=== PATIENT | female | born 1990 | race Caucasian/White ===

== ENCOUNTER 2018-06-05 07:58 | Emergency (ER) | payer MEDICAID ==
[~2018-06-05] VITALS: Ht 172.7 cm; Wt 76.6 kg
[~2018-06-05 07:58] MED LIST: ONDA4TAB6 PO
[2018-06-05 08:05] VITALS: BP 119/71
[2018-06-05] MEDS ORDERED: HYDROcodone/acetaminophen 10/325mg tab PO ONE (08:55)
[2018-06-05] MEDS ORDERED: bupivacaine 0.25%/epinephrine 1:200,000 inj (contains preserv. MDV) IJ ONE (08:55)
[2018-06-05] MEDS ORDERED: BUPIVAcaine/PF 2.5mg/ml (0.25%) 10ml vial IJ ONE (09:35)
[2018-06-05] MEDS ORDERED: IBUP-1985 PO (10:46)
[2018-06-05] MEDS ORDERED: HYDR-3965 PO (10:46)
== END 2018-06-05 10:55 | disposition home or self-care (01) ==
LOC: ER 07:59
DX: K04.7 Periapical abscess without sinus (principal); Z88.0 Allergy status to penicillin
CPT/HCPCS: 41800; 99283; J3490

== ENCOUNTER 2020-06-07 11:35 | Emergency (ER) | payer MEDICAID ==
[~2020-06-07] VITALS: Ht 172.7 cm; Wt 70.5 kg
[~2020-06-07 11:35] MED LIST changes: +IBUP-1985 PO
--- NOTE | 2020-06-07 13:11 | NUR ---
ASSISTED PA WITH VAGINAL EXAMINATION, WETMOUNT COLLECTED AND SEND TO LAB.
--- NOTE | 2020-06-07 13:12 | NUR ---
PATIENT IS WAITING FOR A PELVIC XRAY.
[2020-06-07 13:37] LABS: CLARITY,URINE SLIGHTLY CLOUDY (Clear); COLOR,URINE YELLOW (Yellow); GLUCOSE, URINE NEGATIVE (Neg); KETONES,URINE TRACE mg/dl (Neg); LEUKOCYTE ESTERASE ,URINE NEGATIVE (Neg); NITRITES, URINE NEGATIVE (Neg); OCCULT BLOOD,URINE NEGATIVE (Neg); PROTEIN,URINE NEGATIVE (Neg)
[2020-06-07 13:42] LABS: UA COLLECTION TYPE CLN CATCH MIDSTREAM
[2020-06-07 13:43] LABS: MUCUS STRANDS MANY /LPF (Neg); SQUAMOUS EPITHELIAL CELL,UR MANY /LPF (FEW)
[2020-06-07 13:45] LABS: BACTERIA,URINE FEW /HPF (Neg); RBC,URINE NONE SEEN /HPF (0-2); WBC,URINE 0-4 /HPF (0-4)
[2020-06-07 14:02] VITALS: BP 118/58
== END 2020-06-07 14:05 | disposition home or self-care (01) ==
LOC: ER 11:36
DX: T83.89XA Other specified complication of genitourinary prosthetic devices, implants and grafts, initial encounter (principal); F11.90 Opioid use, unspecified, uncomplicated; Z86.19 Personal history of other infectious and parasitic diseases; Z88.0 Allergy status to penicillin; Z79.899 Other long term (current) drug therapy; Y76.8 Miscellaneous obstetric and gynecological devices associated with adverse incidents, not elsewhere classified; Y92.89 Other specified places as the place of occurrence of the external cause
CPT/HCPCS: 74018; 81001; 87210; 99284

== ENCOUNTER 2020-11-09 08:03 | Emergency (ER) | payer MEDICAID ==
[~2020-11-09] VITALS: Ht 172.7 cm; Wt 64.8 kg
[2020-11-09 08:47] LABS: BASOPHILS % (AUTO) 0.4 % (0-1); EOSINOPHILS # (AUTO) 0.1 X10'3 (0-0.9); HEMATOCRIT 42.5 % (35.0-45.0); HEMOGLOBIN 14.5 g/dl (12.0-16.0); MEAN CORPUSCULAR HEMOGLOBIN 29.2 PG (27.0-31.0); MEAN CORPUSCULAR HGB CONC 34.2 g/dL (33.0-36.5); MEAN CORPUSCULAR VOLUME 85.3 FL (78-98); MEAN PLATELET VOLUME 9.7 FL (7.4-10.4); MONOCYTES # (AUTO) 0.5 X10'3 (0-0.9); MONOCYTES % (AUTO) 8.8 % (2-12); NEUTROPHILS # (AUTO) 3.6 X10'3 (1.8-7.7); NEUTROPHILS % (AUTO) 57.8 % (42-75); PLATELET COUNT 177 X10'3 (140-440); RED BLOOD COUNT 4.98 X10'6 (4.20-5.60); RED CELL DISTRIBUTION WIDTH 13.7 % (11.5-14.5); WHITE BLOOD COUNT 6.2 X10'3 (4.5-11.0)
[2020-11-09] MEDS ORDERED: normal saline 1000ML IV soln IVB ONE (08:50)
[2020-11-09] MEDS ORDERED: ondansetron/PF 4mg/2ml inj IV ONE (08:50)
[2020-11-09 09:05] LABS: ALANINE AMINOTRANSFERASE 19 U/L (12-78); ALBUMIN 4.2 G/DL (3.4-5.0); ALBUMIN/GLOBULIN RATIO 1.2 (1.1-1.5); ALKALINE PHOSPHATASE 72 IU/L (46-116); ANION GAP 11 (8-16); ASPARTATE AMINO TRANSFERASE 16 U/L (10-37); BILIRUBIN,TOTAL 0.6 MG/DL (0.1-1.0); BLOOD UREA NITROGEN 11 MG/DL (7-18); BUN/CREATININE RATIO 14.1 (6.6-38.0); CALCIUM 9.3 MG/DL (8.5-10.1); CHLORIDE 102 MMOL/L (99-107); CREATININE 0.78 MG/DL (0.40-0.90); GLUCOSE 150 MG/DL (70-104); LIPASE 99 U/L (73-393); SODIUM 139 MMOL/L (135-145); TOTAL CARBON DIOXIDE 26.1 MMOL/L (24-32); TOTAL PROTEIN 7.7 G/DL (6.4-8.2); eGFR 87 ML/MIN
[2020-11-09 09:06] LABS: CLARITY,URINE TURBID (Clear); COLOR,URINE YELLOW (Yellow); GLUCOSE, URINE NEGATIVE (Neg); KETONES,URINE 15 mg/dl (Neg); LEUKOCYTE ESTERASE ,URINE TRACE (Neg); NITRITES, URINE NEGATIVE (Neg); OCCULT BLOOD,URINE NEGATIVE (Neg); PROTEIN,URINE 30 mg/dl (Neg)
[2020-11-09 09:07] LABS: URINE HCG NEGATIVE (NEG)
[2020-11-09 09:13] LABS: UA COLLECTION TYPE CLN CATCH MIDSTREAM
[2020-11-09 09:14] LABS: CAL OXALATE CRYSTALS FEW /HPF (NEGATIVE); MUCUS STRANDS MANY /LPF (Neg); SQUAMOUS EPITHELIAL CELL,UR MANY /LPF (FEW)
[2020-11-09 09:17] LABS: AMORPHOUS URATES 2+
[2020-11-09 09:18] LABS: BACTERIA,URINE 2+ /HPF (Neg); RBC,URINE 0-2 /HPF (0-2)
[2020-11-09] MEDS ORDERED: potassium Cl 20 mEq SR tablet PO ONE (09:30)
[2020-11-09] MEDS ORDERED: ONDA4TAB6 PO (09:34)
[2020-11-09 10:02] VITALS: BP 101/62
== END 2020-11-09 10:10 | disposition home or self-care (01) ==
LOC: ER 08:03
DX: R11.2 Nausea with vomiting, unspecified (principal); E87.6 Hypokalemia; R10.10 Upper abdominal pain, unspecified; F11.90 Opioid use, unspecified, uncomplicated; Z86.19 Personal history of other infectious and parasitic diseases; Z88.0 Allergy status to penicillin; Z79.899 Other long term (current) drug therapy
CPT/HCPCS: 36415; 80053; 81001; 81025; 83690; 85025; 96361; 96374; 99284; J2405; J7030

== ENCOUNTER 2021-12-25 06:52 | Emergency (ER) | payer MEDICAID ==
[~2021-12-25] VITALS: Ht 172.7 cm; Wt 56.8 kg
[2021-12-25 06:59] VITALS: BP 119/82
[2021-12-25 07:34] LABS: CLARITY,URINE CLOUDY (Clear); COLOR,URINE YELLOW (Yellow); GLUCOSE, URINE NEGATIVE (Neg); KETONES,URINE TRACE mg/dl (Neg); LEUKOCYTE ESTERASE ,URINE NEGATIVE (Neg); NITRITES, URINE POSITIVE (Neg); OCCULT BLOOD,URINE NEGATIVE (Neg); PH,URINE 5.5 (4.8-8.0); PROTEIN,URINE NEGATIVE (Neg); UROBILINOGEN,URINE 0.2 E.U/dL (0.2-1.0)
[2021-12-25 07:36] LABS: UA COLLECTION TYPE VOIDED
[2021-12-25 07:48] LABS: BACTERIA,URINE 4+ /HPF (Neg); MUCUS STRANDS MANY /LPF (Neg); RBC,URINE NONE SEEN /HPF (0-2); SQUAMOUS EPITHELIAL CELL,UR MANY /LPF (FEW); URINE HCG NEGATIVE (NEG)
[2021-12-25] MEDS ORDERED: CefTRIAXone 250MG IM Kit w/LIDOcaine IM STA (07:51)
[2021-12-25] MEDS ORDERED: DOXYCYCLINE 100MG CAPSULE PO ONE (07:55)
[2021-12-25] MEDS ORDERED: CefTRIAXone 500MG IM Kit w/LIDOcaine IM STA (08:03)
[2021-12-25] MEDS ORDERED: DOXY-1 PO ×5 (10:22→11:27)
== END 2021-12-25 11:30 | disposition home or self-care (01) ==
LOC: ER 06:52
DX: Z11.3 Encounter for screening for infections with a predominantly sexual mode of transmission (principal); Z88.0 Allergy status to penicillin; Z91.09 Other allergy status, other than to drugs and biological substances; F19.10 Other psychoactive substance abuse, uncomplicated
CPT/HCPCS: 36415; 81001; 81025; 86592; 87491; 87591; 96372; 99283; J0696